=== PATIENT | female | born 1965 | race Caucasian/White ===

== ENCOUNTER → 2017-01-15 | Outpatient (CLI) | payer OTHER | LOC: BRMIMAGING 11:11 | PROVIDERS: ATTEND Specialist | DX: D25.2 Subserosal leiomyoma of uterus (principal) | CPT/HCPCS: 76856-PO ==

== ENCOUNTER → 2017-07-17 | Outpatient (CLI) | payer OTHER | LOC: BRMIMAGING 15:04 | PROVIDERS: ATTEND Specialist | DX: Z12.31 Encounter for screening mammogram for malignant neoplasm of breast (principal) | CPT/HCPCS: G0202 ==

== ENCOUNTER → 2017-08-01 | Outpatient (CLI) | payer OTHER | LOC: BRMIMAGING 09:21 | PROVIDERS: ATTEND Specialist | DX: R92.8 Other abnormal and inconclusive findings on diagnostic imaging of breast (principal) | CPT/HCPCS: 76641-PO; G0206 ==

== ENCOUNTER → 2017-08-13 | Outpatient (CLI) | payer OTHER ==
[~2017-08-13] MED LIST: BUPIVACAINE 0.5% 10 ML SDV ONE; LIDOCAINE 1% 300 MG/30 ML SDV ONE
== END ==
LOC: FIMAGING 06:54
PROVIDERS: ATTEND Specialist
PROC: 0HBU3ZX Excision of Left Breast, Percutaneous Approach, Diagnostic (ICD-10-PCS; principal; 2017-08-13)
DX: C50.212 Malignant neoplasm of upper-inner quadrant of left female breast (principal); D24.2 Benign neoplasm of left breast
CPT/HCPCS: G0206

== ENCOUNTER → 2017-08-24 | Outpatient (CLI) | payer OTHER ==
[~2017-08-24] MED LIST changes: -BUPIVACAINE 0.5% 10 ML SDV ONE; +GADOBUTROL 10 ML VIAL IVP ONE; -LIDOCAINE 1% 300 MG/30 ML SDV ONE
== END ==
LOC: FIMAGING 06:40
PROVIDERS: ATTEND Specialist
DX: D05.12 Intraductal carcinoma in situ of left breast (principal)
CPT/HCPCS: 0159T; 77059; A9585; C8908

== ENCOUNTER 2017-09-18 06:09 | Day surgery (SDC) | payer OTHER ==
[2017-09-18] MEDS ORDERED: LIDOCAINE 1% 2 ML INJ ID PRN (06:26)
[2017-09-18] MEDS ORDERED: LR 1,000 ML IV ONE (06:26)
[2017-09-18] MEDS ORDERED: ceFAZolin 2 GM/SWFI 2 GM/20 ML SYR IVP ONE ×2 (06:26→07:30)
[2017-09-18 06:44] VITALS: PULSE 77
[2017-09-18] MEDS ORDERED: LIDOCAINE 1% 300 MG/30 ML SDV ONE (07:44)
[2017-09-18] MEDS ORDERED: DIAZEPAM 5 MG TAB PO ONE (07:45)
[2017-09-18] MEDS ORDERED: BUPIVACAINE 0.5% 30 ML SDV ONE (11:41)
[2017-09-18] MEDS ORDERED: ceFAZolin 2 GM/SWFI 20 ML SYR IVP ONE (12:01)
[2017-09-18] MEDS ORDERED: MIDAZOLAM 2 MG/2 ML VIAL IVP ONE (12:55)
--- NOTE | 2017-09-18 12:55 | PDANEPAE ---
ANE History of Present Illness 51 yo lumpectomy/snb ANE Past Medical History - Cardiovascular History Hx Hypertension: No Hx Arrhythmias: No Hx Chest Pain: No Hx Coronary Artery / Peripheral Vascular Disease: No Hx CHF / Valvular Disease: No Hx Palpitations: No - Pulmonary History Hx COPD: No Hx Asthma/Reactive Airway Disease: No Hx Recent Upper Respiratory Infection: No Hx Oxygen in Use at Home: No Hx Sleep Apnea: No Sleep Apnea Screening Result - Last Documented: Negative - Neurologic History Hx Cerebrovascular Accident: No Hx Seizures: No Hx Dementia: No - Endocrine History Hx Diabetes: No - Renal History Hx Renal Disorders: No - Liver History Hx Hepatic Disorders: No - Neurological & Psychiatric Hx Hx Neurological and Psychiatric Disorders: No - Cancer History Hx Cancer: Yes Cancer History Comment: BREAST CA CURRENTLY - Congenital Disorder History Hx Congenital Disorders: No - GI History Hx Gastrointestinal Disorders: No - Other Health History Other Health History: WEARS GLASSES - Chronic Pain History Chronic Pain: No - Surgical History Prior Surgeries: HYSTERECTOMY SUMMER 2016. 2010 BX ON SHEATH OF OPTIC NERVE ANE Review of Systems Review of Systems: - Exercise capacity METS (RN): 4 METS ANE Patient History - Allergies Allergies/Adverse Reactions: No Known Allergies Allergy (Verified 09/17/17 16:48) - Home Medications Home medications: home medication list seen and reviewed Home Medications: Essential Oils 09/17/17 [Last Taken 09/17/17] L-LYSINE 09/17/17 [Last Taken 09/17/17] - NPO status NPO Status: no food or drink >8 hours NPO Since - Liquids (Date): 09/17/17 NPO Since - Liquids (Time): 21:00 NPO Since - Solids (Date): 09/17/17 NPO Since - Solids (Time): 21:00 - Anes Hx Anes Hx: post operative nausea and vomiting - Smoking Hx Smoking Status: Never smoked - Family Anes Hx Family Hx Anesthesia Complications: NONE ANE Labs/Vital Signs - Vital Signs Blood Pressure: 137/90 Heart Rate: 77 Respiratory Rate: 16 O2 Sat (%): 100 Height: 5 ft 3 in Weight: 56.699 kg ANE Physical Exam - Airway Neck exam: FROM Mallampati Score: Class 2 - Pulmonary Pulmonary: no respiratory distress - Cardiovascular Cardiovascular: regular rate and rhythym - ASA Status ASA Status: II ANE Anesthesia Plan Anesthesia Plan: GA w LMA
[2017-09-18] MEDS ORDERED: SCOPOLAMINE HYDROBROMIDE 1 MG/3 DAYS PATCH TD SCH (13:00)
--- NOTE | 2017-09-18 13:14 | PDHPUP ---
History & Physical Update H&P update statement: This history and physical update is based on an assessment of the patient which was completed after admission or registration (within 24 hours), but prior to the surgery/procedure. H&P update: H&P reviewed & patient examined, no change in patient's condition since H&P completed
[2017-09-18] MEDS ORDERED: fentaNYL 100 MCG/2 ML INJ ONE ×3 (13:22→15:42)
[2017-09-18] MEDS ORDERED: PROPOFOL/EMULSION 500 MG/50 ML BOTTLE IV ONE (13:23)
[2017-09-18] MEDS ORDERED: ONDANSETRON 4 MG/2 ML VIAL IVP PRN (14:44)
[2017-09-18] MEDS ORDERED: NALOXONE HCL 0.4 MG/ML INJ IVP PRN (14:44)
[2017-09-18] MEDS ORDERED: fentaNYL 100 MCG/2 ML INJ IVP PRN (14:44)
[2017-09-18] MEDS ORDERED: HYDROmorphONE/DILAUDID 1 MG/ML INJ IVP PRN (14:44)
--- NOTE | 2017-09-18 15:11 | POSTANESTH ---
Post Anesthetic Evaluation Cardiovascular Status: Normal, Stable Respiratory Status: Normal, Stable Level of Consciousness/Mental Status: Can Participate in Eval Pain Control: Adequate, Prn Tx Ordered Nausea/Vomiting Control: Adequate, Prn Tx Ordered Complications Possibly Related to Anesthesia: None Noted
[2017-09-18 16:22] VITALS: TEMP 98.1
[2017-09-18] MEDS ORDERED: OXYCODONE/APAP 5/325 TAB ONE (16:47)
[2017-09-18 18:05] VITALS: BP 144/82; O2SAT 90
[2017-09-18 18:08] VITALS: RESP 16
[2017-09-18] MEDS ORDERED: OXYCODONE/APAP 5/325 TAB PO PRN (18:09)
[2017-09-21] MEDS ORDERED: PATCH REMOVAL 1 EA PATCH TD SCH (12:55)
--- NOTE | 2017-10-10 09:32 | GOP ---
[f rep st] OPERATIVE REPORT DATE OF OPERATION: 09/18/2017 SURGEON: Cristina Ulrich MD ANESTHESIA: General. ANESTHESIOLOGIST: Finesse Jerome MD. PREOPERATIVE DIAGNOSIS: Left breast infiltrating ductal carcinoma. POSTOPERATIVE DIAGNOSIS: Left breast infiltrating ductal carcinoma. PROCEDURE PERFORMED: 1. Ultrasound-guided right internal jugular PowerPort placement. 2. Needle localized left breast lumpectomy. 3. Left sentinel lymph node. FINDINGS: Negative sentinel lymph node. SPECIMENS: Lumpectomy margins and sentinel lymph node. ESTIMATED BLOOD LOSS: 10 cc. 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 She presents for port placement and lumpectomy. DESCRIPTION OF PROCEDURE: The patient was brought into the operating room, placed supine on the tabl e. General anesthesia was administered. Her bilateral neck and chest were prepped and draped in the usual and axilla were prepped and draped in the usual sterile fashion. I infiltrated all sites with 0.5% Marcaine prior to making incisions. Using the ultrasound, I identified the right internal jugu lar vein. I accessed this with dark return of blood flow. I threaded the guidewire and removed the needle. I created a pocket to accommodate the port in the right chest. I tunneled this up to the in sertion site under fluoroscopy, I measured the catheter and cut it to size. The wire was in the IVC. Using the Seldinger technique, I placed a dilator and sheath over the wire. I removed the wire and the dilator. I threaded the catheter through the sheath and peeled away the sheath. Placement was confirmed with fluoroscopy. The pocket was closed with 3-0 Vicryl followed by 4-0 Monocryl. Dermabo nd applied. Next, I moved to the left breast. Using the wire, I made an ellipse around the wire. I created supe rior and inferior skin flaps and dissected down beyond the level of the wire. The specimen was inked green anterior, red superior, yellow medial, blue inferior, orange lateral, black posterior. This w as submitted to Radiology. Clip was contained in the specimen. I took an additional superior margin inked red, medial margin inked yellow, inferior margin inked blue, lateral margin inked orange, and posterior margin inked black. These were submitted for permanent. I made an incision by her axilla. I dissected down through the subcutaneous tissues. I entered the axillary space. I used the gamma probe to help identify the sentinel lymph node. I excised this. This was submitted to Pathology fo r frozen. It returned negative. Hemostasis was achieved in both the lumpectomy cavity and the axill tu cavity. Each were closed with 3-0 Vicryl followed by 4-0 Monocryl. Mastisol, Steri-Strips, and sterile dressings were applied. She tolerated the procedure well. /[id number]/MODL
== END 2017-09-18 17:50 | disposition home or self-care (01) ==
LOC: FIMAGING 06:09
PROVIDERS: ATTEND Surgery
DX: C50.212 Malignant neoplasm of upper-inner quadrant of left female breast (principal); Z17.0 Estrogen receptor positive status [ER+]
CPT/HCPCS: 19120; 38525; 71010; 76001; 76098; 78195; A9520; C1788; J0690; J1642; J2250; J2704; J3010

== ENCOUNTER → 2018-02-18 | Outpatient (CLI) | payer OTHER | LOC: BRMIMAGING 14:00 | PROVIDERS: ATTEND Internal Medicine Hematology & Oncology | DX: Z13.820 Encounter for screening for osteoporosis (principal); Z85.3 Personal history of malignant neoplasm of breast; Z79.899 Other long term (current) drug therapy ==

== ENCOUNTER → 2018-04-23 | Outpatient (CLI) | payer OTHER | LOC: BRMIMAGING 11:56 | PROVIDERS: ATTEND Internal Medicine Hematology & Oncology | DX: D72.829 Elevated white blood cell count, unspecified (principal); C50.919 Malignant neoplasm of unspecified site of unspecified female breast; Z96.89 Presence of other specified functional implants | CPT/HCPCS: 71046-PO ==

== ENCOUNTER → 2018-07-18 | Outpatient (CLI) | payer OTHER | LOC: FIMAGING 10:02 | PROVIDERS: ATTEND Internal Medicine Hematology & Oncology | DX: Z12.31 Encounter for screening mammogram for malignant neoplasm of breast (principal) ==

== ENCOUNTER → 2018-07-25 | Outpatient (CLI) | payer OTHER | LOC: BMCIMAGING 11:40 | PROVIDERS: ATTEND Internal Medicine Rheumatology | DX: M79.641 Pain in right hand (principal); M79.642 Pain in left hand; M25.561 Pain in right knee; M25.562 Pain in left knee ==

== ENCOUNTER → 2018-08-02 | Outpatient (CLI) | payer OTHER | LOC: BRMIMAGING 09:11 | PROVIDERS: ATTEND Internal Medicine Hematology & Oncology | DX: R92.0 Mammographic microcalcification found on diagnostic imaging of breast (principal) ==

== ENCOUNTER → 2018-11-14 | Outpatient (CLI) | payer OTHER | LOC: FIMAGING 15:32 | PROVIDERS: ATTEND Internal Medicine Hematology & Oncology | DX: M75.91 Shoulder lesion, unspecified, right shoulder (principal); S46.011A Strain of muscle(s) and tendon(s) of the rotator cuff of right shoulder, initial encounter; Z85.3 Personal history of malignant neoplasm of breast | CPT/HCPCS: A9585 ==